=== PATIENT | female | born 1970 | race Caucasian/White ===

== ENCOUNTER 2018-02-27 10:17 | Emergency (ER) | payer BC ==
--- NOTE | 2018-02-27 11:06 | EDM.PDOC ---
ED HPI GENERAL MEDICAL PROBLEM - General Chief Complaint: Gastrointestinal Problem Stated Complaint: POSSIBLE FLUID ON ABD Time Seen by Provider: 02/27/18 10:51 - History of Present Illness INITIAL COMMENTS - FREE TEXT/NARRATIVE: HISTORY AND PHYSICAL: History of present illness: The patient is a 47-year-old female who presents for evaluation of possible postoperative fluid in her abdominal wall after undergoing surgery in [facility] on February 04. Patient says that the surgery she underwent in [place] was scar tissue removal from her lower abdomen from prior blunt trauma, repair of abdominal wall muscles, repair of fat-containing umbilical hernia and some mild light suction. Patient says she had [address] [place]-[address] in place laterally the last one was removed about 12 days ago and had only minimal fluid output. Patient says she also had a breast reduction at that time but she is having no issues from that surgery. She is concerned because she felt that there was a liquid-like feeling in her lower abdomen and she was concerned that there may be fluid collecting there. She has had no trauma to the area and has not done any increased lifting or activities and wears her abdominal binder at all times. She has no internal systemic complaints of fever chills flank pain nausea vomiting or diarrhea and has been eating and drinking normally. She has contacted her surgeon in [place] and they recommended that she come here for evaluation. She feels that her incisions are healing nicely. Review of systems: As per history of present illness and below otherwise all systems reviewed and negative. Past medical history: As per history of present illness and as reviewed below otherwise noncontributory. Surgical history: As per history of present illness and as reviewed below otherwise noncontributory. Social history: No reported history of drug or alcohol abuse. Family history: As per history of present illness and as reviewed below otherwise noncontributory. Physical exam: General: Well-developed well-nourished female who is nontoxic and moves easily in the ED without distress. HEENT: Atraumatic, normocephalic, negative for conjunctival pallor or scleral icterus, mucous membranes moist, throat clear, neck supple, nontender, trachea midline. Lungs: Clear to auscultation, breath sounds equal bilaterally, chest nontender. Heart: S1S2, regular rate and rhythm no overt murmurs Abdomen: Soft, nondistended, nontender. Bowel sounds are normoactive Negative for masses or hepatosplenomegaly. Patient has a small umbilical incision which is clean and dry and there is no evidence of any hernial defect tenderness or soft tissue swelling. The patient has a deep lower abdominal scar that extends from the mid axillary line to the midaxillary line and that is well-healed intact nontender and without erythema or fluctuance. On palpation I do not appreciate any fluid wave or localized abdominal fluid collection and there is no tenderness. There is symmetry to her abdominal wall and she indicates the lower abdomen as her area of concern below the umbilicus and above her incision. There is no erythema here or fluctuance. Pelvis: Stable nontender. Genitourinary: Deferred. Rectal: Deferred. Extremities: Atraumatic, negative for cords or calf pain. Neurovascular unremarkable. Neuro: Awake, alert, oriented. Cranial nerves II through XII unremarkable. Cerebellum unremarkable. Motor and sensory unremarkable throughout. Exam nonfocal. Diagnostics: CT scan of the abdomen and pelvis without contrast CBC Therapeutics: [] 1205: This case was discussed with Dr. Hopkins after the CT scan results were obtained. She says this is very common with this type of procedure and she would not do anything about it as long as the patient is asymptomatic but she would like me to check a CBC. I relayed this information in conversation with the patient I will plan disposition if the CBC is within normal limits. I discussed the CBC results with the patient and she has a normal white cell count but her hemoglobin is 7.8. The patient tells me that she has a history of very heavy menstrual periods and has iron deficiency anemia in her family as well as for herself. She said that she had her menstrual cycle before surgery and after her surgery and although she was taking iron supplementation preop she hasn't done that recently. She is currently denying chest pain shortness of breath no black or bloody stools or blood in the urine and is currently not menstruating. I've advised her to have a repeat CBC done next week and to follow -up with Dr. Duval with these results and to discuss options. At this point she feels at her baseline and feels comfortable with outpatient follow-up for this anemia. Impression: Abdominal wall seroma postop stable, anemia with history of same asymptomatic Definitive disposition and diagnosis as appropriate pending reevaluation and review of above. - Related Data Allergies Allergy/AdvReac Type Severity Reaction Status Date / Time No Known Allergies Allergy Verified 02/27/18 11:23 Home Meds: Home Meds . [Unable to Verify Home Med List] 02/27/18 [History] ED ROS GENERAL - Review of Systems Review Of Systems: ROS reveals no pertinent complaints other than HPI. ED EXAM, GENERAL - Physical Exam Exam: See Below (See dictation) Course - Vital Signs Last Recorded V/S: Last Vital Signs Temp 36.8 C 02/27/18 11:20 Pulse 81 02/27/18 11:20 Resp 18 02/27/18 11:20 BP 175/102 H 02/27/18 11:20 Pulse Ox 100 02/27/18 11:20 - Orders/Labs/Meds Labs: Laboratory Tests 02/27/18 Range/Units 12:11 WBC 5.84 (4.0-11.0) K/uL RBC 3.52 L (4.30-5.90) M/uL Hgb 7.8 L (12.0-16.0) g/dL Hct 26.3 L (36.0-46.0) % MCV 74.7 L (80.0-98.0) fL MCH 22.2 L (27.0-32.0) pg MCHC 29.7 L (31.0-37.0) g/dL RDW Std Deviation 43.3 (28.0-62.0) fl RDW Coeff of Vishal 16 H (11.0-15.0) % Plt Count 203 (150-400) K/uL MPV 9.50 (7.40-12.00) fL Neut % (Auto) 60.9 (48.0-80.0) % Lymph % (Auto) 28.3 (16.0-40.0) % Ogle % (Auto) 7.4 (0.0-15.0) % Eos % (Auto) 2.9 (0.0-7.0) % Baso % (Auto) 0.5 (0.0-1.5) % Neut # (Auto) 3.6 (1.4-5.7) K/uL Lymph # (Auto) 1.7 (0.6-2.4) K/uL Ogle # (Auto) 0.4 (0.0-0.8) K/uL Eos # (Auto) 0.2 (0.0-0.7) K/uL Baso # (Auto) 0.0 (0.0-0.1) K/uL Nucleated RBC % 0.0 /100WBC Nucleated RBCs # 0 K/uL Departure - Departure Time of Disposition: 12:55 Disposition: Home, Self-Care 01 Condition: Good Clinical Impression: Abdominal wall seroma Qualifiers: Encounter type: initial encounter Qualified Code(s): T88.8XXA - Other specified complications of surgical and medical care, not elsewhere classified, initial encounter; T79.2XXA - Traumatic secondary and recurrent hemorrhage and seroma, initial encounter Anemia Qualifiers: Anemia type: unspecified type Qualified Code(s): D64.9 - Anemia, unspecified - Discharge Information Referrals: PCP,None [Primary Care Provider] - Forms: ED Department Discharge Additional Instructions: The following information is given to patients seen in the emergency department who are being discharged to home. This information is to outline your options for follow-up care. We provide all patients seen in our emergency department with a follow-up referral. The need for follow-up, as well as the timing and circumstances, are variable depending upon the specifics of your emergency department visit. If you don't have a primary care physician on staff, we will provide you with a referral. We always advise you to contact your personal physician following an emergency department visit to inform them of the circumstance of the visit and for follow-up with them and/or the need for any referrals to a consulting specialist. The emergency department will also refer you to a specialist when appropriate. This referral assures that you have the opportunity for followup care with a specialist. All of these measure are taken in an effort to provide you with optimal care, which includes your followup. Under all circumstances we always encourage you to contact your private physician who remains a resource for coordinating your care. When calling for followup care, please make the office aware that this follow-up is from your recent emergency room visit. If for any reason you are refused follow-up, please contact the [facility] emergency department at and ask to speak to the emergency department charge nurse. [facility] Primary care- Internal Medicine [place] [address] Rest push fluids and eat iron rich foods and to have your blood test repeated on Saturday as we discussed and follow-up with Dr. Duval. Return to ER as needed and as discussed. Continue wearing your abdominal binder and refraining from any lifting or strenuous activity.
--- NOTE | 2018-02-27 12:00 | CT ---
CT scan of the abdomen and pelvis Clinical history: Several surgeries rule out seroma hematoma or fluid collection Comparison: No recent similar exams. Findings: Lung bases are clear except for mild platelike atelectasis adjacent the major fissure on th e right. Allowing for a noncontrasted exam the liver pancreas spleen and gallbladder appear normal. The kidneys and retroperitoneum show no nephrolithiasis or ureterolithiasis hydronephrosis hydrourete r or other acute finding. There is no evidence of specific bowel or mesenteric pathology. Minor diverticulosis of the sigmoid c olon is present. Immediately superficial to the rectus musculature is a diffuse fluid density collection spanning the length of the abdomen from approximately the umbilicus caudally to just above the pubis. This is most consistent with a seroma. There is no evidence of air within the collection to specifically indicate this is infected. Impression: Confirmation of subcutaneous likely seroma, rather extensive without pathologic findings to suggest this is infected.
== END 2018-02-27 13:07 | disposition home or self-care (01) ==
LOC: MW.ED 10:17
DX: L76.34 Postprocedural seroma of skin and subcutaneous tissue following other procedure (principal); D64.9 Anemia, unspecified
CPT/HCPCS: 36415; 74176; 74176-26; 85025; 99283; 99284-25

== ENCOUNTER 2021-01-05 06:41 | Day surgery (SDC) | payer BC ==
[2021-01-03 12:17] LABS: BLOOD UREA NITROGEN,BUN 12 mg/dL (7.0-18.0); CARBON DIOXIDE,CO2 28.8 mmol/L (21.0-32.0); CHLORIDE,CL 103 mmol/L (98-107); GLUCOSE RANDOM 139 mg/dL (74-106); POTASSIUM,K 4.1 mmol/L (3.5-5.1); SODIUM,NA 137 mmol/L (136-145)
[~2021-01-05 06:41] MED LIST: Sodium Chloride 0.9% 10 ML SDV IV PRN; Sodium Chloride 0.9% 10 ML Syringe FLUSH PRN; Sodium Chloride 0.9% 2.5 ML Syringe FLUSH PRN; ceFAZolin 2 GM in Premix Bag 1 BAG IV ONE
[2021-01-05] MEDS ORDERED: Acetaminophen 1,000 MG in Premix Bag 1 BAG IV PRN (06:55)
[2021-01-05] MEDS ORDERED: fentaNYL 250 MCG/5 ML SDV ONE ×2 (07:00→08:20)
[2021-01-05] MEDS ORDERED: Propofol 200 MG/20 ML SDV ONE (07:00)
[2021-01-05] MEDS ORDERED: Midazolam 1 MG/ML 2 ML SDV ONE ×2 (07:00→08:30)
[2021-01-05] MEDS ORDERED: Ondansetron 4 MG/2 ML SDV ONE (07:01)
[2021-01-05] MEDS ORDERED: Ketorolac 30 MG/ML SDV ONE (07:01)
[2021-01-05] MEDS ORDERED: Glycopyrrolate 0.2 MG/ML SDV ONE (07:01)
[2021-01-05] MEDS ORDERED: Rocuronium Bromide 50 MG/5 ML Syringe ONE (07:01)
[2021-01-05] MEDS ORDERED: Lidocaine 2% 5 ML SDV ONE (07:01)
[2021-01-05] MEDS ORDERED: Sugammadex Sodium 200 MG/2 ML VIAL ONE (07:05)
[2021-01-05] MEDS: Lactated Ringers 1,000 ML IV SCH ×2 (07:20→11:00)
[2021-01-05] MEDS ORDERED: Fluorescein 5 ML Vial ONE (07:30)
[2021-01-05] MEDS ORDERED: Octyl 2-Cyanoacrylate 1 Tube ONE (07:31)
--- NOTE | 2021-01-05 07:41 | PCM.PREANE ---
Preanesthetic Assessment - Anesthesia/Transfusion/Family Hx Anesthesia History: Prior Anesthesia Without Reaction Other Type of Anesthesia Reaction Comment: slow to wake up after breast reduction- 6.5 hour surgery Family History of Anesthesia Reaction: No Transfusion History: Prior Transfusion Without Reaction - Review of Systems General: No Symptoms Pulmonary: No Symptoms Cardiovascular: No Symptoms Gastrointestinal: No Symptoms Neurological: No Symptoms Other: Reports: None - Physical Assessment NPO Status Date: 01/05/21 NPO Status Time: 00:05 Vital Signs: Last Vital Signs Temp 97.5 F 01/05/21 06:49 Pulse 94 01/05/21 06:49 Resp 15 01/05/21 06:49 BP 121/72 01/05/21 06:49 Pulse Ox 94 L 01/05/21 06:49 Height: 5 ft 6.5 in Weight: 201 lb ASA Class: 2 Mental Status: Alert & Oriented x3 Airway Class: Mallampati = 3 Dentition: Reports: Normal Dentition ROM/Head Extension: Full Lungs: Clear to Auscultation, Normal Respiratory Effort Cardiovascular: Regular Rate, Regular Rhythm - Lab Values: Laboratory Last Values WBC 6.17 K/uL (4.0-11.0) 01/03/21 11:27 RBC 4.67 M/uL (4.30-5.90) 01/03/21 11:27 Hgb 14.1 g/dL (12.0-16.0) 01/03/21 11:27 Hct 43.3 % (36.0-46.0) 01/03/21 11:27 MCV 92.7 fL (80.0-98.0) 01/03/21 11:27 MCH 30.2 pg (27.0-32.0) 01/03/21 11:27 MCHC 32.6 g/dL (31.0-37.0) 01/03/21 11:27 RDW Std Deviation 43.8 fl (28.0-62.0) 01/03/21 11:27 RDW Coeff of Vishal 13 % (11.0-15.0) 01/03/21 11:27 Plt Count 189 K/uL (150-400) 01/03/21 11:27 MPV 11.70 fL (7.40-12.00) 01/03/21 11:27 Nucleated RBC % 0.0 /100WBC 01/03/21 11:27 Nucleated RBCs # 0 K/uL 01/03/21 11:27 Sodium 137 mmol/L (136-145) 01/03/21 11:27 Potassium 4.1 mmol/L (3.5-5.1) 01/03/21 11:27 Chloride 103 mmol/L (98-107) 01/03/21 11:27 Carbon Dioxide 28.8 mmol/L (21.0-32.0) 01/03/21 11:27 BUN 12 mg/dL (7.0-18.0) 01/03/21 11:27 Creatinine 0.9 mg/dL (0.6-1.0) 01/03/21 11:27 Est Cr Clr Drug Dosing 72.95 mL/min 01/03/21 11:27 Estimated GFR (MDRD) > 60.0 ml/min 01/03/21 11:27 Glucose 139 mg/dL (74-106) H 01/03/21 11:27 Calcium 8.5 mg/dL (8.5-10.1) 01/03/21 11:27 HCG, Qual NEGATIVE (NEG) 01/03/21 11:27 Blood Type A POSITIVE 01/03/21 11:27 Antibody Screen NEGATIVE 01/03/21 11:27 - Allergies Allergies/Adverse Reactions: Allergies Allergy/AdvReac Type Severity Reaction Status Date / Time No Known Allergies Allergy Verified 12/30/20 15:32 - Anesthesia Plan Pre-Op Medication Ordered: None - Acknowledgements Anesthesia Type Planned: General Anesthesia Pt an Appropriate Candidate for the Planned Anesthesia: Yes Alternatives and Risks of Anesthesia Discussed w Pt/Guardian: Yes Pt/Guardian Understands and Agrees with Anesthesia Plan: Yes Additional Comments: npo after mn htn no cv problems occ increased hr no rx no sob, cp anxiety depression etoh occ tob quit 2016 par no questions obesity bmi 32 PreAnesthesia Questionnaire HEENT History: Reports: Other (See Below) Other HEENT History: wears glasses/contacts Cardiovascular History: Reports: Hypertension Gastrointestinal History: Reports: None [employer] History: Reports: Dysfunctional Uterine Bleeding, Fibroids, Musculoskeletal History: Reports: Back Pain, Chronic Other Musculoskeletal History: not since breast reduction Neurological History: Reports: Concussion Psychiatric History: Reports: PTSD Other Psychiatric History: recent of her mother Endocrine/Metabolic History: Reports: Obesity/BMI 30+ Other Endocrine/Metabolic History: borderline diabetic Hematologic History: Reports: Blood Transfusion(s), Other (See Below) Other Hematologic History: has had iron infusions - Infectious Disease History Infectious Disease History: Reports: Chicken Pox - Past Surgical History Head Surgeries/Procedures: Reports: None GI Surgical History: Reports: Other (See Below) Other GI Surgeries/Procedures: Tissue removed from abdomen including hernia repair during breast reduction surgery Female Surgical History: Reports: Breast Reduction - SUBSTANCE USE Tobacco Use Status *Q: Never Tobacco User Recreational Drug Use History: No - HOME MEDS Home Medications: Home Meds Losartan/Hydrochlorothiazide [Losartan-HCTZ 100-12.5 MG] 1 tab PO QAM 12/30/20 [History] - CURRENT (IN HOUSE) MEDS Current Meds: Current Medications Fentanyl (Fentanyl 100 Mcg/2 Ml Sdv) 50 mcg IVPUSH Q5M PRN PRN Reason: Pain Lactated Ringer's (Ringers, Lactated) 1,000 mls @ 125 mls/hr IV ASDIRECTED REENA Last Admin: 01/05/21 07:20 Dose: 125 mls/hr Documented by: Acetaminophen 1,000 mg/ Premix 100 mls @ 400 mls/hr IV Q6H PRN PRN Reason: Pain Sodium Chloride (Sodium Chloride 0.9% 10 Ml Syringe) 10 ml FLUSH ASDIRECTED PRN PRN Reason: Keep Vein Open Sodium Chloride (Sodium Chloride 0.9% 2.5 Ml Syringe) 2.5 ml FLUSH ASDIRECTED PRN PRN Reason: Keep Vein Open Sodium Chloride (Sodium Chloride 0.9% 10 Ml Sdv) 10 ml IV ASDIRECTED PRN PRN Reason: IV Use Discontinued Medications Fentanyl (Fentanyl 250 Mcg/5 Ml Sdv) Confirm Administered Dose 250 mcg .ROUTE .STK-MED ONE Stop: 01/05/21 07:01 Fluorescein Sodium (Fluorescein 5 Ml Vial) Confirm Administered Dose 5 ml .ROUTE .STK-MED ONE Stop: 01/05/21 07:31 Glycopyrrolate (Glycopyrrolate 0.2 Mg/Ml Sdv) Confirm Administered Dose 0.2 mg .ROUTE .STK-MED ONE Stop: 01/05/21 07:02 Cefazolin Sodium/Dextrose 2 gm (/ Premix) 50 mls @ 100 mls/hr IV ONETIME ONE Stop: 01/03/21 11:02 Ketorolac Tromethamine (Ketorolac 30 Mg/Ml Sdv) Confirm Administered Dose 30 mg .ROUTE .[employer]-MED ONE Stop: 01/05/21 07:02 Lidocaine (Lidocaine 2% 5 Ml Sdv) Confirm Administered Dose 5 ml .ROUTE .[employer]-MED ONE Stop: 01/05/21 07:02 Midazolam HCl (Midazolam 1 Mg/Ml 2 Ml Sdv) Confirm Administered Dose 2 mg .ROUTE .[facility] ONE Stop: 01/05/21 07:01 Octyl Cyanoacrylate (Octyl 2-Cyanoacrylate 1 Tube) Confirm Administered Dose 1 applic .ROUTE .[facility] ONE Stop: 01/05/21 07:32 Ondansetron HCl (Ondansetron 4 Mg/2 Ml Sdv) Confirm Administered Dose 4 mg .ROUTE .[facility] ONE Stop: 01/05/21 07:02 Propofol (Propofol 200 Mg/20 Ml Sdv) Confirm Administered Dose 200 mg .ROUTE .[employer] ONE Stop: 01/05/21 07:01 Rocuronium Mercer (Rocuronium Mercer 50 Mg/5 Ml Syringe) Confirm Administered Dose 50 mg .ROUTE .[facility] ONE Stop: 01/05/21 07:02 Sugammadex Sodium (Sugammadex Sodium 200 Mg/2 Ml Vial) Confirm Administered Dose 200 mg .ROUTE .[facility] ONE Stop: 01/05/21 07:06
[2021-01-05] MEDS ORDERED: ceFAZolin 1 GM Vial ONE (07:51)
[2021-01-05] MEDS ORDERED: Sodium Chloride 0.9% 20 ML ONE (07:51)
[2021-01-05] MEDS ORDERED: LORazepam 2 MG/ML SDV IVPUSH ONE (08:45)
[2021-01-05] MEDS ORDERED: Furosemide 40 MG/4 ML VIAL ONE (09:18)
[2021-01-05] MEDS ORDERED: Promethazine 25 MG/ML SDV IM PRN (09:40)
[2021-01-05] MEDS ORDERED: Ketorolac 30 MG/ML SDV IVPUSH ONE (09:40)
[2021-01-05] MEDS ORDERED: Ondansetron 4 MG/2 ML SDV IVPUSH PRN (09:40)
[2021-01-05] MEDS ORDERED: Morphine 4 MG/ML Syringe IVPUSH PRN (09:40)
[2021-01-05] MEDS ORDERED: Acetaminophen/oxyCODONE 325-5 MG Tab PO PRN (09:40)
--- NOTE | 2021-01-05 09:43 | PCM.OPNOTE ---
- General Post-Op/Procedure Note Date of Surgery/Procedure: 01/05/21 Operative Procedure(s): TLH,LSO,RS and Cysto. Post-Op Diagnosis: Same Anesthesia Technique: General ET Tube, General LMA Primary Surgeon: Yovanny Montano EBL in mLs: 150 Complications: None Condition: Good
[2021-01-05] MEDS: fentaNYL 100 MCG/2 ML SDV IVPUSH PRN ×2 (10:05→10:15)
--- NOTE | 2021-01-05 10:36 | PCM.POSTAN ---
POST ANESTHESIA ASSESSMENT - MENTAL STATUS Mental Status: Alert, Oriented - VITAL SIGNS Vital Signs: Last Vital Signs Temp 97.2 F 01/05/21 09:47 Pulse 81 01/05/21 10:29 Resp 10 L 01/05/21 10:29 BP 114/73 01/05/21 10:29 Pulse Ox 95 01/05/21 10:29 - RESPIRATORY Respiratory Status: Respiratory Rate WNL, Airway Patent, O2 Saturation Stable - CARDIOVASCULAR CV Status: Pulse Rate WNL, Blood Pressure Stable - GASTROINTESTINAL GI Status: No Symptoms - PAIN Pain Score: 2 - POST OP HYDRATION Hydration Status: Adequate & Stable
[2021-01-05] MEDS: Acetaminophen/oxyCODONE 325-5 MG Tab PO PRN ×2 (13:52→21:09)
[2021-01-05] MEDS ORDERED: Ketorolac 30 MG/ML SDV IVPUSH PRN (15:40)
[2021-01-05] MEDS ORDERED: Sodium Chloride 0.9% 10 ML Syringe FLUSH PRN (17:38)
[2021-01-06] MEDS: Acetaminophen/oxyCODONE 325-5 MG Tab PO PRN ×3 (00:46→09:21)
[2021-01-06 05:41] LABS: CARBON DIOXIDE,CO2 30.6 mmol/L (21.0-32.0); POTASSIUM,K 3.5 mmol/L (3.5-5.1)
--- NOTE | 2021-01-06 09:03 | PCM.SURGPN ---
- General Info Date of Service: 01/06/21 Functional Status: Reports: Pain Controlled - Review of Systems General: Reports: No Symptoms HEENT: Reports: No Symptoms Pulmonary: Reports: No Symptoms Cardiovascular: Reports: No Symptoms Gastrointestinal: Reports: No Symptoms Genitourinary: Reports: No Symptoms Musculoskeletal: Reports: No Symptoms Skin: Reports: No Symptoms Neurological: Reports: No Symptoms Psychiatric: Reports: No Symptoms - Patient Data Vitals - Most Recent: Last Vital Signs Temp 36.8 C 01/06/21 07:37 Pulse 84 01/06/21 07:37 Resp 16 01/06/21 07:37 BP 114/66 01/06/21 07:37 Pulse Ox 94 L 01/06/21 07:37 Weight - Most Recent: 91.172 kg I&O - Last 24 Hours: Intake & Output 01/05/21 01/06/21 01/06/21 22:59 06:59 14:59 Intake Total 500 860 Output Total 1400 980 Balance -900 -120 Lab Results Last 24 Hrs: Laboratory Results - last 24 hr 01/06/21 01/06/21 Range/Units 04:57 04:57 WBC 8.29 (4.0-11.0) K/uL RBC 3.90 L (4.30-5.90) M/uL Hgb 11.9 L (12.0-16.0) g/dL Hct 36.7 (36.0-46.0) % MCV 94.1 (80.0-98.0) fL MCH 30.5 (27.0-32.0) pg MCHC 32.4 (31.0-37.0) g/dL RDW Std Deviation 46.1 (28.0-62.0) fl RDW Coeff of Vishal 14 (11.0-15.0) % Plt Count 180 (150-400) K/uL MPV 11.20 (7.40-12.00) fL Neut % (Auto) 62.3 (48.0-80.0) % Lymph % (Auto) 27.0 (16.0-40.0) % [place] % (Auto) 8.8 (0.0-15.0) % Eos % (Auto) 1.3 (0.0-7.0) % Baso % (Auto) 0.6 (0.0-1.5) % Neut # (Auto) 5.2 (1.4-5.7) K/uL Lymph # (Auto) 2.2 (0.6-2.4) K/uL [place] # (Auto) 0.7 (0.0-0.8) K/uL Eos # (Auto) 0.1 (0.0-0.7) K/uL Baso # (Auto) 0.1 (0.0-0.1) K/uL Nucleated RBC % 0.0 /100WBC Nucleated RBCs # 0 K/uL Sodium 140 (136-145) mmol/L Potassium 3.5 (3.5-5.1) mmol/L Chloride 103 (98-107) mmol/L Carbon Dioxide 30.6 (21.0-32.0) mmol/L BUN 15 (7.0-18.0) mg/dL Creatinine 1.0 (0.6-1.0) mg/dL Est Cr Clr Drug Dosing 65.65 mL/min Estimated GFR (MDRD) 59.2 ml/min Glucose 120 H (74-106) mg/dL Calcium 8.0 L (8.5-10.1) mg/dL Med Orders - Current: Current Medications Lactated Ringer's (Ringers, Lactated) 1,000 mls @ 125 mls/hr IV ASDIRECTED [facility] Last Admin: 01/05/21 11:00 Dose: 125 mls/hr Documented by: Acetaminophen 1,000 mg/ Premix 100 mls @ 400 mls/hr IV Q6H PRN PRN Reason: Pain Last Admin: 01/05/21 10:16 Dose: 400 mls/hr Documented by: Ketorolac Tromethamine (Ketorolac 30 Mg/Ml Sdv) 30 mg IVPUSH Q6H PRN PRN Reason: Pain (severe 7-10) Stop: 01/10/21 15:41 Last Admin: 01/05/21 17:44 Dose: 30 mg Documented by: Morphine Sulfate (Morphine 4 Mg/Ml Syringe) 4 mg IVPUSH Q2H PRN PRN Reason: Pain (severe 7-10) Ondansetron HCl (Ondansetron 4 Mg/2 Ml Sdv) 4 mg IVPUSH Q6H PRN PRN Reason: Nausea/Vomiting Last Admin: 01/05/21 10:59 Dose: 4 mg Documented by: Oxycodone/Acetaminophen (Acetaminophen/Oxycodone 325-5 Mg Tab) 1 tab PO Q4H PRN PRN Reason: Pain (moderate 4-6) Last Admin: 01/06/21 04:20 Dose: 1 tab Documented by: Oxycodone/Acetaminophen (Acetaminophen/Oxycodone 325-5 Mg Tab) 2 tab PO Q4H PRN PRN Reason: Pain (moderate 4-6) Promethazine HCl (Promethazine 25 Mg/Ml Sdv) 25 mg IM Q6H PRN PRN Reason: Nausea/Vomiting Sodium Chloride (Sodium Chloride 0.9% 10 Ml Syringe) 10 ml FLUSH ASDIRECTED PRN PRN Reason: Keep Vein Open Sodium Chloride (Sodium Chloride 0.9% 2.5 Ml Syringe) 2.5 ml FLUSH ASDIRECTED PRN PRN Reason: Keep Vein Open Sodium Chloride (Sodium Chloride 0.9% 10 Ml Sdv) 10 ml IV ASDIRECTED PRN PRN Reason: IV Use Sodium Chloride (Sodium Chloride 0.9% 10 Ml Syringe) 10 ml FLUSH ASDIRECTED PRN PRN Reason: Keep Vein Open Discontinued Medications Cefazolin Sodium (Cefazolin 1 Gm Vial) Confirm Administered Dose 2 gm .ROUTE .STK-MED ONE Stop: 01/05/21 07:52 Fentanyl (Fentanyl 100 Mcg/2 Ml Sdv) 50 mcg IVPUSH Q5M PRN PRN Reason: Pain Last Admin: 01/05/21 10:15 Dose: 50 mcg Documented by: Fentanyl (Fentanyl 250 Mcg/5 Ml Sdv) Confirm Administered Dose 250 mcg .ROUTE .STK-MED ONE Stop: 01/05/21 07:01 Fentanyl (Fentanyl 250 Mcg/5 Ml Sdv) Confirm Administered Dose 250 mcg .ROUTE .STK-MED ONE Stop: 01/05/21 08:21 Fluorescein Sodium (Fluorescein 5 Ml Vial) Confirm Administered Dose 5 ml .ROUTE .STK-MED ONE Stop: 01/05/21 07:31 Furosemide (Furosemide 40 Mg/4 Ml Vial) Confirm Administered Dose 40 mg .ROUTE .STK-MED ONE Stop: 01/05/21 09:19 Glycopyrrolate (Glycopyrrolate 0.2 Mg/Ml Sdv) Confirm Administered Dose 0.2 mg .ROUTE .STK-MED ONE Stop: 01/05/21 07:02 Sodium Chloride (Normal Saline) Confirm Administered Dose 20 mls @ as directed .ROUTE .[facility] ONE Stop: 01/05/21 07:52 Ketorolac Tromethamine (Ketorolac 30 Mg/Ml Sdv) Confirm Administered Dose 30 mg .ROUTE .[facility] ONE Stop: 01/05/21 07:02 Ketorolac Tromethamine (Ketorolac 30 Mg/Ml Sdv) 30 mg IVPUSH ONETIME ONE Stop: 01/05/21 09:41 Last Admin: 01/05/21 10:09 Dose: Not Given Documented by: Lidocaine (Lidocaine 2% 5 Ml Sdv) Confirm Administered Dose 5 ml .ROUTE .[facility] ONE Stop: 01/05/21 07:02 Lorazepam (Lorazepam 2 Mg/Ml Sdv) 2 mg IVPUSH ONETIME ONE Stop: 01/05/21 08:46 Last Admin: 01/05/21 11:07 Dose: Not Given Documented by: Midazolam HCl (Midazolam 1 Mg/Ml 2 Ml Sdv) Confirm Administered Dose 2 mg .ROUTE .[facility] ONE Stop: 01/05/21 07:01 Midazolam HCl (Midazolam 1 Mg/Ml 2 Ml Sdv) Confirm Administered Dose 2 mg .ROUTE .[facility] ONE Stop: 01/05/21 08:31 Octyl Cyanoacrylate (Octyl 2-Cyanoacrylate 1 Tube) Confirm Administered Dose 1 applic .ROUTE .[facility] ONE Stop: 01/05/21 07:32 Ondansetron HCl (Ondansetron 4 Mg/2 Ml Sdv) Confirm Administered Dose 4 mg .ROUTE .[facility] ONE Stop: 01/05/21 07:02 Propofol (Propofol 200 Mg/20 Ml Sdv) Confirm Administered Dose 200 mg .ROUTE .[facility] ONE Stop: 01/05/21 07:01 Rocuronium Check (Rocuronium Check 50 Mg/5 Ml Syringe) Confirm Administered Dose 50 mg .ROUTE .[facility] ONE Stop: 01/05/21 07:02 Sugammadex Sodium (Sugammadex Sodium 200 Mg/2 Ml Vial) Confirm Administered Dose 200 mg .ROUTE .[facility] ONE Stop: 01/05/21 07:06 - Exam Wound/Incisions: Healing Well General: Alert, Oriented HEENT: Pupils Equal Neck: Supple Lungs: Clear to Auscultation, Normal Respiratory Effort Cardiovascular: Regular Rate, Regular Rhythm GI/Abdominal Exam: Normal Bowel Sounds, Soft, Non-Tender, No Organomegaly, No Distention, No Abnormal Bruit, No Mass, Pelvis Stable Extremities: Normal Inspection, Normal Range of Motion, Non-Tender, No Pedal Edema, Normal Capillary Refill Skin: Warm, Dry, Intact Neurological: No New Focal Deficit Psy/Mental Status: Alert, Normal Affect, Normal Mood Sepsis Event Note - Evaluation Sepsis Screening Result: No Definite Risk - Focused Exam Vital Signs: Vital Signs Temp Pulse Resp BP Pulse Ox 01/06/21 07:37 36.8 C 84 16 114/66 94 L 01/06/21 04:00 37 C 82 19 125/78 98 01/06/21 00:00 36.8 C 75 18 118/78 97 - Problem List Review Problem List Initiated/Reviewed/Updated: Yes - My Orders Last 24 Hours: Active Orders 24 hr Category Date Time Status Patient Status [ADT] Routine ADT 01/05/21 09:40 Active Antiembolic Devices [RC] PER UNIT ROUTINE Care 01/05/21 09:40 Active Notify Provider Vital Signs [RC] ASDIRECTED Care 01/05/21 09:40 Active Oxygen Therapy [RC] ASDIRECTED Care 01/05/21 09:40 Active RT Incentive Spirometry [RC] Q2HWA Care 01/05/21 09:40 Active Up With Assistance [RC] PER UNIT ROUTINE Care 01/05/21 09:40 Active Up ad Juany [RC] PER UNIT ROUTINE Care 01/05/21 09:40 Active Vital Signs [RC] PER UNIT ROUTINE Care 01/05/21 09:40 Active Regular Diet [DIET] Diet 01/05/21 Lunch Active Acetaminophen/oxyCODONE [Percocet 325-5 MG] Med 01/05/21 09:40 Active 1 tab PO Q4H PRN Acetaminophen/oxyCODONE [Percocet 325-5 MG] Med 01/05/21 09:40 Active 2 tab PO Q4H PRN Ketorolac [Toradol] Med 01/05/21 15:40 Active 30 mg IVPUSH Q6H PRN Morphine Med 01/05/21 09:40 Active 4 mg IVPUSH Q2H PRN Ondansetron [Zofran] Med 01/05/21 09:40 Active 4 mg IVPUSH Q6H PRN Promethazine [Phenergan] Med 01/05/21 09:40 Active 25 mg IM Q6H PRN Sodium Chloride 0.9% [Saline Flush] Med 01/05/21 17:38 Active 10 ml FLUSH ASDIRECTED PRN Convert IV to Saline Lock [OM.PC] Routine Oth 01/05/21 17:38 Ordered Peripheral IV Discontinue [OM.PC] Routine Oth 01/05/21 09:40 Ordered Sequential Compression Device [OM.PC] Per Unit Routine Oth 01/05/21 09:40 Ordered Resuscitation Status Routine Resus Stat 01/05/21 09:40 Ordered Medication Orders Lactated Ringer's (Ringers, Lactated) 1,000 mls @ 125 mls/hr IV ASDIRECTED REENA Last Admin: 01/05/21 11:00 Dose: 125 mls/hr Documented by: Infusion: 01/05/21 11:00 Dose: 125 mls/hr Documented by: Admin: 01/05/21 07:20 Dose: 125 mls/hr Documented by: SANTIAGO Acetaminophen 1,000 mg/ Premix 100 mls @ 400 mls/hr IV Q6H PRN PRN Reason: Pain Last Admin: 01/05/21 10:16 Dose: 400 mls/hr Documented by: DELILAH Ketorolac Tromethamine (Ketorolac 30 Mg/Ml Sdv) 30 mg IVPUSH Q6H PRN PRN Reason: Pain (severe 7-10) Stop: 01/10/21 15:41 Last Admin: 01/05/21 17:44 Dose: 30 mg Documented by: EUGENIA Morphine Sulfate (Morphine 4 Mg/Ml Syringe) 4 mg IVPUSH Q2H PRN PRN Reason: Pain (severe 7-10) Ondansetron HCl (Ondansetron 4 Mg/2 Ml Sdv) 4 mg IVPUSH Q6H PRN PRN Reason: Nausea/Vomiting Last Admin: 01/05/21 10:59 Dose: 4 mg Documented by: EUGENIA Oxycodone/Acetaminophen (Acetaminophen/Oxycodone 325-5 Mg Tab) 1 tab PO Q4H PRN PRN Reason: Pain (moderate 4-6) Last Admin: 01/06/21 04:20 Dose: 1 tab Documented by: Admin: 01/06/21 00:46 Dose: 1 tab Documented by: Admin: 01/05/21 21:09 Dose: 1 tab Documented by: Admin: 01/05/21 13:52 Dose: 1 tab Documented by: ОЛЕГ Oxycodone/Acetaminophen (Acetaminophen/Oxycodone 325-5 Mg Tab) 2 tab PO Q4H PRN PRN Reason: Pain (moderate 4-6) Promethazine HCl (Promethazine 25 Mg/Ml Sdv) 25 mg IM Q6H PRN PRN Reason: Nausea/Vomiting Sodium Chloride (Sodium Chloride 0.9% 10 Ml Syringe) 10 ml FLUSH ASDIRECTED PRN PRN Reason: Keep Vein Open Sodium Chloride (Sodium Chloride 0.9% 2.5 Ml Syringe) 2.5 ml FLUSH ASDIRECTED PRN PRN Reason: Keep Vein Open Sodium Chloride (Sodium Chloride 0.9% 10 Ml Sdv) 10 ml IV ASDIRECTED PRN PRN Reason: IV Use Sodium Chloride (Sodium Chloride 0.9% 10 Ml Syringe) 10 ml FLUSH ASDIRECTED PRN PRN Reason: Keep Vein Open - Assessment Assessment (Free Text/Narrative):: Status post laparoscopic hysterectomy the patient postoperative day she is doing well she is on regular diet tolerated very well she is passing gas she is voiding without any problem and had pain is under control had lab work is within normal limit - Plan Plan (Free Text/Narrative):: The patient will be discharged home the post hysterectomy instruction is given to the patient prescription for Narco 5/325 is given for postoperative pain she is to come to the office next week for postoperative examination
--- NOTE | 2021-01-06 09:04 | PCM.DCSUM1 ---
Discharge Summary - Hospital Course Diagnosis: Stroke: No - Discharge Data Discharge Date: 01/06/21 Discharge Disposition: Home, Self-Care 01 Condition: Good - Referral to Home Health Primary Care Physician: Naldo Duval MD - Patient Summary/Data Operative Procedure(s) Performed: TLH,LSO,RS and Cysto. - Patient Instructions Diet: Usual Diet as Tolerated Activity: As Tolerated Driving: Do Not Drive Showering/Bathing: May Shower - Discharge Plan Home Medications: Home Meds Losartan/Hydrochlorothiazide [Losartan-HCTZ 100-12.5 MG] 1 tab PO QAM 12/30/20 [History] Referrals: Yovanny Montano MD [Physician] - 01/10/21 8:30 am - Discharge Summary/Plan Comment DC Time >30 min.: Yes - General Info Date of Service: 01/06/21 Functional Status: Reports: Pain Controlled - Review of Systems General: Reports: No Symptoms HEENT: Reports: No Symptoms Pulmonary: Reports: No Symptoms Cardiovascular: Reports: No Symptoms Gastrointestinal: Reports: No Symptoms Genitourinary: Reports: No Symptoms Musculoskeletal: Reports: No Symptoms Skin: Reports: No Symptoms Neurological: Reports: No Symptoms Psychiatric: Reports: No Symptoms - Patient Data Vitals - Most Recent: Last Vital Signs Temp 36.8 C 01/06/21 07:37 Pulse 84 01/06/21 07:37 Resp 16 01/06/21 07:37 BP 114/66 01/06/21 07:37 Pulse Ox 94 L 01/06/21 07:37 Weight - Most Recent: 91.172 kg I&O - Last 24 hours: Intake & Output 01/05/21 01/06/21 01/06/21 22:59 06:59 14:59 Intake Total 500 860 Output Total 1400 980 Balance -900 -120 Lab Results - Last 24 hrs: Laboratory Results - last 24 hr 01/06/21 01/06/21 Range/Units 04:57 04:57 WBC 8.29 (4.0-11.0) K/uL RBC 3.90 L (4.30-5.90) M/uL Hgb 11.9 L (12.0-16.0) g/dL Hct 36.7 (36.0-46.0) % MCV 94.1 (80.0-98.0) fL MCH 30.5 (27.0-32.0) pg MCHC 32.4 (31.0-37.0) g/dL RDW Std Deviation 46.1 (28.0-62.0) fl RDW Coeff of Vishal 14 (11.0-15.0) % Plt Count 180 (150-400) K/uL MPV 11.20 (7.40-12.00) fL Neut % (Auto) 62.3 (48.0-80.0) % Lymph % (Auto) 27.0 (16.0-40.0) % [place] % (Auto) 8.8 (0.0-15.0) % Eos % (Auto) 1.3 (0.0-7.0) % Baso % (Auto) 0.6 (0.0-1.5) % Neut # (Auto) 5.2 (1.4-5.7) K/uL Lymph # (Auto) 2.2 (0.6-2.4) K/uL [place] # (Auto) 0.7 (0.0-0.8) K/uL Eos # (Auto) 0.1 (0.0-0.7) K/uL Baso # (Auto) 0.1 (0.0-0.1) K/uL Nucleated RBC % 0.0 /100WBC Nucleated RBCs # 0 K/uL Sodium 140 (136-145) mmol/L Potassium 3.5 (3.5-5.1) mmol/L Chloride 103 (98-107) mmol/L Carbon Dioxide 30.6 (21.0-32.0) mmol/L BUN 15 (7.0-18.0) mg/dL Creatinine 1.0 (0.6-1.0) mg/dL Est Cr Clr Drug Dosing 65.65 mL/min Estimated GFR (MDRD) 59.2 ml/min Glucose 120 H (74-106) mg/dL Calcium 8.0 L (8.5-10.1) mg/dL Med Orders - Current: Current Medications Lactated Ringer's (Ringers, Lactated) 1,000 mls @ 125 mls/hr IV ASDIRECTED REENA Last Admin: 01/05/21 11:00 Dose: 125 mls/hr Documented by: Acetaminophen 1,000 mg/ Premix 100 mls @ 400 mls/hr IV Q6H PRN PRN Reason: Pain Last Admin: 01/05/21 10:16 Dose: 400 mls/hr Documented by: Ketorolac Tromethamine (Ketorolac 30 Mg/Ml Sdv) 30 mg IVPUSH Q6H PRN PRN Reason: Pain (severe 7-10) Stop: 01/10/21 15:41 Last Admin: 01/05/21 17:44 Dose: 30 mg Documented by: Morphine Sulfate (Morphine 4 Mg/Ml Syringe) 4 mg IVPUSH Q2H PRN PRN Reason: Pain (severe 7-10) Ondansetron HCl (Ondansetron 4 Mg/2 Ml Sdv) 4 mg IVPUSH Q6H PRN PRN Reason: Nausea/Vomiting Last Admin: 01/05/21 10:59 Dose: 4 mg Documented by: Oxycodone/Acetaminophen (Acetaminophen/Oxycodone 325-5 Mg Tab) 1 tab PO Q4H PRN PRN Reason: Pain (moderate 4-6) Last Admin: 01/06/21 04:20 Dose: 1 tab Documented by: Oxycodone/Acetaminophen (Acetaminophen/Oxycodone 325-5 Mg Tab) 2 tab PO Q4H PRN PRN Reason: Pain (moderate 4-6) Promethazine HCl (Promethazine 25 Mg/Ml Sdv) 25 mg IM Q6H PRN PRN Reason: Nausea/Vomiting Sodium Chloride (Sodium Chloride 0.9% 10 Ml Syringe) 10 ml FLUSH ASDIRECTED PRN PRN Reason: Keep Vein Open Sodium Chloride (Sodium Chloride 0.9% 2.5 Ml Syringe) 2.5 ml FLUSH ASDIRECTED PRN PRN Reason: Keep Vein Open Sodium Chloride (Sodium Chloride 0.9% 10 Ml Sdv) 10 ml IV ASDIRECTED PRN PRN Reason: IV Use Sodium Chloride (Sodium Chloride 0.9% 10 Ml Syringe) 10 ml FLUSH ASDIRECTED PRN PRN Reason: Keep Vein Open Discontinued Medications Cefazolin Sodium (Cefazolin 1 Gm Vial) Confirm Administered Dose 2 gm .ROUTE .STK-MED ONE Stop: 01/05/21 07:52 Fentanyl (Fentanyl 100 Mcg/2 Ml Sdv) 50 mcg IVPUSH Q5M PRN PRN Reason: Pain Last Admin: 01/05/21 10:15 Dose: 50 mcg Documented by: Fentanyl (Fentanyl 250 Mcg/5 Ml Sdv) Confirm Administered Dose 250 mcg .ROUTE .STK-MED ONE Stop: 01/05/21 07:01 Fentanyl (Fentanyl 250 Mcg/5 Ml Sdv) Confirm Administered Dose 250 mcg .ROUTE .[facility]-MED ONE Stop: 01/05/21 08:21 Fluorescein Sodium (Fluorescein 5 Ml Vial) Confirm Administered Dose 5 ml .ROUTE .[facility] ONE Stop: 01/05/21 07:31 Furosemide (Furosemide 40 Mg/4 Ml Vial) Confirm Administered Dose 40 mg .ROUTE .[facility]-MED ONE Stop: 01/05/21 09:19 Glycopyrrolate (Glycopyrrolate 0.2 Mg/Ml Sdv) Confirm Administered Dose 0.2 mg .ROUTE .[facility]-MED ONE Stop: 01/05/21 07:02 Sodium Chloride (Normal Saline) Confirm Administered Dose 20 mls @ as directed .ROUTE .[facility] ONE Stop: 01/05/21 07:52 Ketorolac Tromethamine (Ketorolac 30 Mg/Ml Sdv) Confirm Administered Dose 30 mg .ROUTE .[facility]-MED ONE Stop: 01/05/21 07:02 Ketorolac Tromethamine (Ketorolac 30 Mg/Ml Sdv) 30 mg IVPUSH ONETIME ONE Stop: 01/05/21 09:41 Last Admin: 01/05/21 10:09 Dose: Not Given Documented by: Lidocaine (Lidocaine 2% 5 Ml Sdv) Confirm Administered Dose 5 ml .ROUTE .[facility]-MED ONE Stop: 01/05/21 07:02 Lorazepam (Lorazepam 2 Mg/Ml Sdv) 2 mg IVPUSH ONETIME ONE Stop: 01/05/21 08:46 Last Admin: 01/05/21 11:07 Dose: Not Given Documented by: Midazolam HCl (Midazolam 1 Mg/Ml 2 Ml Sdv) Confirm Administered Dose 2 mg .ROUTE .[facility]-MED ONE Stop: 01/05/21 07:01 Midazolam HCl (Midazolam 1 Mg/Ml 2 Ml Sdv) Confirm Administered Dose 2 mg .ROUTE .[facility]-MED ONE Stop: 01/05/21 08:31 Octyl Cyanoacrylate (Octyl 2-Cyanoacrylate 1 Tube) Confirm Administered Dose 1 applic .ROUTE .[facility]-MED ONE Stop: 01/05/21 07:32 Ondansetron HCl (Ondansetron 4 Mg/2 Ml Sdv) Confirm Administered Dose 4 mg .ROUTE .[facility]-MED ONE Stop: 01/05/21 07:02 Propofol (Propofol 200 Mg/20 Ml Sdv) Confirm Administered Dose 200 mg .ROUTE .[facility]-MED ONE Stop: 01/05/21 07:01 Rocuronium [place] (Rocuronium [place] 50 Mg/5 Ml Syringe) Confirm Administered Dose 50 mg .ROUTE .[facility]-MED ONE Stop: 01/05/21 07:02 Sugammadex Sodium (Sugammadex Sodium 200 Mg/2 Ml Vial) Confirm Administered Dose 200 mg .ROUTE .STK-MED ONE Stop: 01/05/21 07:06 - Exam General: Reports: Alert, Oriented HEENT: Reports: Pupils Equal, Pupils Reactive, EOMI, Mucous Membr. Moist/[place] Neck: Reports: Supple Lungs: Reports: Clear to Auscultation, Normal Respiratory Effort Cardiovascular: Reports: Regular Rate, Regular Rhythm GI/Abdominal Exam: Normal Bowel Sounds, Soft, Non-Tender, No Organomegaly, No Distention, No Abnormal Bruit, No Mass, Pelvis Stable (Female) Exam: Normal External Exam, Normal Speculum Exam, Normal Bimanual Exam Rectal (Female) Exam: Normal Exam, Normal Rectal Tone Back Exam: Reports: Normal Inspection, Full Range of Motion Extremities: Normal Inspection, Normal Range of Motion, Non-Tender, No Pedal Edema, Normal Capillary Refill Skin: Reports: Warm, Dry, Intact Wound/Incisions: Reports: Healing Well Neurological: Reports: No New Focal Deficit Psy/Mental Status: Reports: Alert, Normal Affect, Normal Mood
--- NOTE | 2021-01-06 09:49 | OR ---
SURGEON: Yovanny Montano MD DATE OF PROCEDURE: 01/05/2021 PREOPERATIVE DIAGNOSES: Enlarged uterus, possible fibroid, menometrorrhagia, failed medical therapy. POSTOPERATIVE DIAGNOSES: Enlarged uterus, possible fibroid, menometrorrhagia, failed medical therapy. OPERATIONS PERFORMED: Multiple-puncture diagnostic laparoscopy, total laparoscopic hysterectomy, left salpingo-oophorectomy, and right salpingectomy preserving the right ovary, and cystoscopy. PRIMARY SURGEON: Yovanny Montano MD SERVICER: OR tech. ANESTHESIA: General endotracheal intubation. ESTIMATED BLOOD LOSS: 125 to 150 mL. COMPLICATIONS: None. FINDINGS: Uterus is about 12 to 13 weeks size. There are adhesions around the left tube and ovary. INDICATIONS FOR SURGERY: O'Brien refer to the admit note. PROCEDURE IN DETAIL: The patient was brought to the OR, properly identified, and after adequate level of general anesthesia, the patient was placed in lithotomy position with an access to the abdomen and the vagina. The patient was prepped and draped in sterile fashion as usual, and Ji catheter was placed in the bladder for drainage, and the colpotomizer manipulator was placed in the uterus for manipulation, then the operation shifted abdominally. Stab wound was done beneath the umbilicus. The Veress needle was placed in the peritoneal cavity and that cavity insufflated with adequate CO2 to place the 5 mm trocar centrally utilizing the Visiport technique safely. Once we were in the peritoneal cavity through the laparoscope, 10/12 trocar placed in the left iliac fossa and 5 mm trocar in the right. The patient was placed in steep Trendelenburg. The operation started by identifying the landmark of the pelvis. Once we did that, then using the Alvaro Harmonic scalpel after lysing the adhesions from around the left tube and ovary, the superior pedicle coagulated and transected using the Harmonic scalpel, and then the round ligament done in the same way and then the anterior leaf of the broad ligament dissected down more medially and pushing the bladder away from the lower uterine segment and the surgeon could easily manipulate her through the vagina. Then, the uterine vessel at the level of the manipulator coagulated and transected with the Alvaro Harmonic scalpel. There was a back bleeder from the uterus and that was stopped by using the Alvaro Harmonic scalpel. Once we did that, then the operation shifted to the other side. The superior pedicle coagulated and transected. The tubes were included with the specimen, but the ovary preserved. In the same manner, the round ligament was coagulated and transected, and then the uterine vessel on the right side coagulated and transected. Now, the manipulator was very easily palpable, and using the Alvaro Harmonic scalpel, a circular incision in the vaginal mucosa around the tip of the manipulator detaching the cervix from its attachment to the vagina. Once we did that, then we removed the uterus vaginally. After removing the uterus vaginally, vaginal pack was placed in place to get pneumoperitoneum and then thorough irrigation of the pelvis showed no oozing, no bleeding, and at this time, we proceeded to close the vaginal cuff laparoscopically using 2-0 PDS interrupted. While we were doing that, we asked the Anesthesia personnel to give the patient fluorescein, and after closing the vagina, the abdomen was deflated. Ji catheter was removed. Cystoscopy was performed. The bladder was intact. Both ureteric orifices seen with the dye coming from both of them. Thus, the patency of both ureters verified. Satisfied with this finding. Multiple laparoscopic incisions were closed in layers. Instrument and sponge count was correct. The patient tolerated the procedure well, went to recovery room in stable general condition. MARICARMEN / CARLOS /[id number]
== END 2021-01-06 09:35 | disposition home or self-care (01) ==
LOC: MW.SDS 06:41 → MW.MS 10:05 → MW.SDS 01-06 09:35
PROVIDERS: ATTEND Obstetrics & Gynecology
DX: N80.0 Endometriosis of uterus (principal); N84.0 Polyp of corpus uteri; N83.02 Follicular cyst of left ovary; E11.9 Type 2 diabetes mellitus without complications; I10 Essential (primary) hypertension; E78.00 Pure hypercholesterolemia, unspecified; E03.9 Hypothyroidism, unspecified; E66.9 Obesity, unspecified; Z79.899 Other long term (current) drug therapy; Z98.890 Other specified postprocedural states; Z87.891 Personal history of nicotine dependence
CPT/HCPCS: 36415; 58571; 80048; 84703; 85025; 85027; 86850; 86900; 86901; 88307; A9270; J0131; J0690; J1885; J1940; J2060; J2250; J2405; J2704; J3010; J3490; J7120; 00840